=== PATIENT | female | born 1955 | race Caucasian/White ===

== ENCOUNTER 2022-01-01 15:42 | Outpatient (CLI) | payer BC ==
[2022-01-02 00:28] LABS: SARS-CoV-2 PCR by NAA DETECTED (NotDetected)
== END 2022-01-01 15:43 | disposition home or self-care (01) ==
LOC: CSHLAB 15:42
PROVIDERS: ATTEND Internal Medicine Pulmonary Disease
DX: U07.1 COVID-19 (principal)
CPT/HCPCS: U0003; U0005

== ENCOUNTER 2022-02-01 15:35 | Outpatient (CLI) | payer BC ==
[2022-02-02 13:23] LABS: SARS-CoV-2 PCR by NAA DETECTED (NotDetected)
== END 2022-02-01 15:36 | disposition home or self-care (01) ==
LOC: CSHLAB 15:35
PROVIDERS: ATTEND Internal Medicine Pulmonary Disease
DX: U07.1 COVID-19 (principal)
CPT/HCPCS: U0003; U0005